=== PATIENT | male | born 2000 | race Caucasian/White ===

== ENCOUNTER → 2019-10-06 | Emergency (ER) | payer OTHER ==
[~2019-10-06] VITALS: Ht 185.4 cm; Wt 60.4 kg
[~2019-10-06] MED LIST: PRED20TA PO
[2019-10-06 01:09] VITALS: Ht 185.4 cm; Wt 60.4 kg
[2019-10-06 02:19] VITALS: BP 140/73; PULSE 86; RESP 18
== END | disposition home or self-care (01) ==
LOC: FTE 01:04
DX: G51.0 Bell's palsy (principal)
CPT/HCPCS: 99283